=== PATIENT | male | born 1995 ===

== ENCOUNTER → 2016-10-06 | Outpatient (CLI) | payer OTHER | LOC: BMCIMAGING 12:28 | PROVIDERS: ATTEND Emergency Medicine | DX: R05 Cough (principal); R50.9 Fever, unspecified ==

== ENCOUNTER → 2018-06-29 | Outpatient (CLI) | payer OTHER | LOC: BMCIMAGING 15:56 | PROVIDERS: ATTEND Family Medicine | DX: S49.92XA Unspecified injury of left shoulder and upper arm, initial encounter (principal) ==